=== PATIENT | male | born 1995 | race Caucasian/White ===

== ENCOUNTER 2022-05-11 12:55 | Emergency (ER) | payer OTHER ==
[~2022-05-11] VITALS: Ht 172.7 cm; Wt 113.4 kg
[2022-05-11 13:07] VITALS: BP_SYST 143
--- NOTE | 2022-05-11 13:20 | NUR ---
PT WALKED TO HW 1 WITH STEADY GAIT. CO N/V/ABD PAIN X 4DAYS. NO FURHTER CO. PT WAS A/OX4, SPEAKS FULL SENTENCES, FOLLOWS COMMAND, DENIES GREY AND DIZZINESS.
[2022-05-11 14:05] LABS: BASOPHILS # (AUTO) 0.1 K/uL (0.0-0.2); BASOPHILS % (AUTO) 1.3 % (0.0-2.0); EOSINOPHILS # (AUTO) 0.3 K/uL (0.0-0.4); EOSINOPHILS % (AUTO) 2.9 % (0.0-4.0); HEMATOCRIT 44.8 % (36-54); HEMOGLOBIN 15.6 g/dL (14.0-18.0); LYMPHOCYTES # (AUTO) 2.4 K/uL (1.0-5.5); LYMPHOCYTES % (AUTO) 26.5 % (20.5-51.5); MEAN CORPUSCULAR HEMOGLOBIN 31 pg (27-31); MEAN CORPUSCULAR HGB CONC 35 % (32-36); MEAN CORPUSCULAR VOLUME 88 fL (79.0-98.0); MONOCYTES # (AUTO) 0.6 K/uL (0.0-1.0); MONOCYTES % (AUTO) 6.1 % (1.7-9.3); NEUTROPHILS # (AUTO) 5.8 K/uL (1.8-7.7); NEUTROPHILS % (AUTO) 63.2 % (40.0-70.0); PLATELET COUNT (AUTO) 322 K/uL (130-430); RED BLOOD CELL COUNT(AUTO) 5.12 MIL/uL (4.2-6.2); RED CELL DISTRIBUTION WIDTH 13.2 % (9.0-15.0); WHITE BLOOD COUNT (AUTO) 9.2 K/uL (4.8-10.8)
[2022-05-11 14:13] LABS: BILIRUBIN,URINE NEGATIVE (NEGATIVE); BLOOD, URINE NEGATIVE (NEGATIVE); CLARITY/URINE CLEAR (CLEAR); COLOR,URINE YELLOW (YELLOW); GLUCOSE,URINE NEGATIVE (NEGATIVE); KETONES,URINE 2+ (NEGATIVE); NITRITE, URINE NEGATIVE (NEGATIVE); PH,URINE 6.5 (5.0-8.0); PROTEIN URINE NEGATIVE (NEGATIVE)
[2022-05-11 14:18] LABS: CALCIUM 9.9 mg/dL (8.4-11.0); CREATININE 1.19 mg/dL (0.55-1.30); POTASSIUM 3.6 mmol/L (3.5-5.1)
[2022-05-11 14:26] LABS: LEUKOCYTE ESTERASE ,URINE TRACE (NEGATIVE)
[2022-05-11 14:28] LABS: BACTERIA,URINE FEW /HPF (None Seen); MUCUS,URINE None Seen /LPF (None Seen); RBC,URINE NONE SEEN /HPF (0-3)
[2022-05-11 14:31] LABS: ALBUMIN 4.8 g/dL (3.4-4.8); TOTAL BILIRUBIN 0.5 mg/dL (0.0-1.0)
[2022-05-11] MEDS ORDERED: METOCLOPRAMIDE HCL 10 MG TABLET PO ONE (15:00)
[2022-05-11] MEDS ORDERED: MAG-AL HYDROX/SIMETH 30 ML UDC PO ONE (15:00)
--- NOTE | 2022-05-11 15:09 | NUR ---
DR SALAZAR IN ROOM FOR EXAM
--- NOTE | 2022-05-11 15:09 | NUR ---
PT WAS EXAMED. MEDCATION DONE.
[2022-05-11] MEDS ORDERED: SUCR1TAB2 PO (15:18)
[2022-05-11] MEDS ORDERED: ONDA-8 TL (15:18)
[2022-05-11] MEDS ORDERED: CEPH-548 PO (15:18)
[2022-05-11] MEDS ORDERED: FAMO20TA8 PO (15:18)
--- NOTE | 2022-05-11 15:33 | NUR ---
Patient given written and verbal discharge instructions and verbalizes understanding. ER MD discussed with patient the results and treatment provided. Patient in stable condition. ID arm band removed. Rx of BRENDAN OLMEDO CARAFTE given. Patient educated on pain management and to follow up with PMD. Pain Scale . Opportunity for questions provided and answered. Medication side effect fact sheet provided.
== END 2022-05-11 15:33 | disposition home or self-care (01) ==
LOC: SED 12:55
DX: N39.0 Urinary tract infection, site not specified (principal); R10.13 Epigastric pain; R11.2 Nausea with vomiting, unspecified; F17.200 Nicotine dependence, unspecified, uncomplicated; F12.90 Cannabis use, unspecified, uncomplicated; Z79.899 Other long term (current) drug therapy
CPT/HCPCS: 99284; 76705; 80053; 81000; 83690; 85025; 36415; J8597